=== PATIENT | female | born 1985 | race Caucasian/White ===

== ENCOUNTER 2020-06-30 15:31 | Outpatient (CLI) | payer MEDICAID | END 2020-06-30 16:55 | disposition home or self-care (01) | LOC: D.LDO 15:31 | PROVIDERS: ATTEND Obstetrics & Gynecology | DX: O26.899 Other specified pregnancy related conditions, unspecified trimester (principal); R10.30 Lower abdominal pain, unspecified ==

== ENCOUNTER 2020-09-23 06:21 | Inpatient (IN) | payer MEDICAID ==
[~2020-09-23] VITALS: Ht 167.6 cm; Wt 96.2 kg
[2020-09-23 06:42] VITALS: BP 108/69; Ht 167.6 cm; Wt 96.2 kg
[2020-09-23 07:05] LABS: BASOPHILS 0.4 % (0-2); EOSINOPHILS 2.4 % (0-7); HEMATOCRIT 29.3 % (36.0-48.0); LYMPHOCYTES 21.1 % (15-50); MCH 31.1 pg (26.0-34.0); MCHC 33.9 g/dL (31.0-37.0); MCV 91.7 fL (80.0-100.0); MEAN PLATELET VOLUME 11.1 fL (7.4-10.4); MONOCYTES 5.4 % (2-11); NEUTROPHILS 70.7 % (40-80); PLATELET COUNT 148 10x3/uL (130-400); RDW 13.1 % (11.5-14.5); WBC 7.5 10x3/uL (4.8-10.8)
[2020-09-23 07:21] LABS: UDS - AMPHET NEGATIVE QUAL (NEGATIVE); UDS - BARB NEGATIVE QUAL (NEGATIVE); UDS - BENZO NEGATIVE QUAL (NEGATIVE); UDS - COCAINE NEGATIVE QUAL (NEGATIVE); UDS - OPIATE NEGATIVE QUAL (NEGATIVE); UDS - PCP NEGATIVE QUAL (NEGATIVE); UDS - THC NEGATIVE QUAL (NEGATIVE)
--- NOTE | 2020-09-24 03:20 | NUR ---
PT CALLS OUT ON LIGHT REQUESTING A NURSE. PT CHUCKS CHANGED PER PT REQUEST. ELIZONDO BEDSIDE DRAINAGE CONTAINER EMPTIED, 350 MLS YELLOW URINE. PT DENIES OTHER NEEDS AT THIS TIME.
[2020-09-24 08:14] LABS: RAPID PLASMA REAGIN Non Reactive (Non Reactive)
[2020-09-24 19:27] VITALS: BP 104/48
--- NOTE | 2020-09-24 19:27 | NUR ---
PT A,A,OX4. VSS. PT HOLDING IN ARMS. FF,MIDLINE,UU, SMALL AMOUNT RUBRA LOCHIA NOTED ON PERIPAD. PIV IN LEFT HAND SALINE LOCKED, PATENT. SEE FULL ASSESSMENT PER FLOWSHEET. ICE WATER PROVIDED. PT DENIES PAIN. DENIES NEEDS AT THIS TIME.
--- NOTE | 2020-09-24 21:24 | NUR ---
TORADOL ADMINISTERED PER EMAR. INFANT RESTING IN CRIB, SIG OTHER SUPPORTIVE IN ROOM. PT DENIES NEEDS AT THIS TIME.
--- NOTE | 2020-09-24 22:50 | NUR ---
PT SITTING UP IN BED. DENIES NEEDS AT THIS TIME.
--- NOTE | 2020-09-25 00:07 | NUR ---
PT RESTING WITH EYES CLOSED, BREATHING NONLABORED.
--- NOTE | 2020-09-25 03:14 | NUR ---
TORADOL ADMINISTERED PER EMAR. PT HOLDING INFANT IN ARMS. ICE WATER PROVIDED. DENIES OTHER NEEDS AT THIS TIME.
--- NOTE | 2020-09-25 04:45 | NUR ---
PT RESTING WITH EYES CLOSED, BREATHING NONLABORED.
--- NOTE | 2020-09-25 05:54 | NUR ---
PT RESTING, DENIES PAIN OR OTHER NEEDS AT THIS TIME. SLEEPING IN CRIB.
[2020-09-25 06:28] LABS: BASOPHILS 0.5 % (0-2); EOSINOPHILS 3.3 % (0-7); HEMATOCRIT 29.5 % (36.0-48.0); HEMOGLOBIN 9.8 g/dL (12-16); MCHC 33.3 g/dL (31.0-37.0); MCV 93.1 fL (80.0-100.0); MEAN PLATELET VOLUME 11.3 fL (7.4-10.4); MONOCYTES 6.3 % (2-11); NEUTROPHILS 59.9 % (40-80); PLATELET COUNT 133 10x3/uL (130-400); RBC 3.17 10x6/uL (4.00-5.40); RDW 13.2 % (11.5-14.5); WBC 7.7 10x3/uL (4.8-10.8)
[2020-09-25 07:10] VITALS: BP 107/61
--- NOTE | 2020-09-25 07:10 | NUR ---
RECEIVED PT LYING TO LEFT SIDE IN BED. WAKES UPON VERBAL STIMULATION. AAO X 3. VSS. HRRR WITHOUT AUDIBLE MURMUR. BBS CLEAR. BS X 4. ABDOMEN SOFT/NON-DISTENDED. FUNDUS FIRM AT U/2. RUBRA LOCHIA SMALL AMT. PT DENIES HEAVY BLEEDING OR PASSING CLOTS. NEG HOMANS' SIGN. PPP. MILD, NON-PITTING EDEMA NOTED TO ANKLES/FEET. PT DENIES PAIN OR NEEDS. SR UP X 2. CALL LIGHT IN REACH.
--- NOTE | 2020-09-25 09:14 | NUR ---
PT PROVIDED WITH TOILETRIES AND LINEN FOR SHOWER. SALINE LOCK TO LEFT HAND DC'D WITH CATHELON INTACT. PRESSURE BANDAGE TO SITE.
--- NOTE | 2020-09-25 11:15 | NUR ---
DR CAIN VISITS WITH PT.
--- NOTE | 2020-09-25 12:45 | NUR ---
PT SITTING UP IN BED. CARING FOR INFANT. DENIES PAIN OR NEEDS.
--- NOTE | 2020-09-25 14:42 | NUR ---
PT STATES DOES NOT WANT TO ROOM IN. PT VSS. DENIES PAIN OR NEEDS.
[2020-09-25 14:43] VITALS: BP 101/61
--- NOTE | 2020-09-25 16:30 | NUR ---
PT LYING TO LEFT SIDE IN BED. AWAKE. WATCHES TV. DENIES PAIN OR NEEDS.
[2020-09-25] MEDS ORDERED: IBUPROFEN800 MG PO (17:44)
[2020-09-25 19:40] VITALS: BP 109/60
--- NOTE | 2020-09-25 19:40 | NUR ---
ROOM CHECK COMPLETE. PT AWAKE AND ALERT. SHIFT ASSESSMENT COMPLETE. VSS. DENIES ANY PAIN. FUNDUS FIRM, MIDLINE, U3. REPORTS LIGHT BLEEDING. BROUGHT ICE WATER. DENIES NEEDING ANYTHING ELSE @ THIS TIME.
--- NOTE | 2020-09-25 22:35 | NUR ---
ROOM CHECK COMPLETE. PT SLEEPING. NO SIGNS OF PAIN OR DISTRESS NOTED.
--- NOTE | 2020-09-26 00:18 | NUR ---
ROOM CHECK COMPLETE. PT ASLEEP. NO SIGNS OF PAIN OR DISTRESS NOTED.
--- NOTE | 2020-09-26 03:15 | NUR ---
ROOM CHECK COMPLETE. PT HAD BEEN SLEEPING AND WOKE WHEN I CAME IN. DENIES NEEDING ANYTHING @ THIS TIME.
--- NOTE | 2020-09-26 04:40 | NUR ---
ROOM CHECK COMPLETE. PT HAD BEEN ASLEEP AND WOKE WHEN I CAME INTO ROOM. NO SIGNS OF PAIN OR DISTRESS NOTED. DENIES NEEDING ANYTHING @ THIS TIME.
--- NOTE | 2020-09-26 05:50 | NUR ---
ROOM CHECK COMPLETE. PT HAD BEEN ASLEEP AND WOKE WHEN I CAME IN. NO SIGNS OF PAIN OR DISTRESS NOTED. DENIES NEEDING ANYTHING @ THIS TIME.
[2020-09-26 07:25] VITALS: BP 101/61
--- NOTE | 2020-09-26 07:30 | NUR ---
AM ROUNDS MADE. PT RESTING QUIETLY, DENIES PAIN OR NEEDS AT THIS TIME. DESIRES DC HOME TODAY. SEE FLOWSHEET FOR ASSESSMENT
--- NOTE | 2020-09-26 10:15 | NUR ---
DC INSTRUCTIONS PROVIDED, PAPERWORK WITH FOLLOW UP APPT GIVEN. PATIENT AND S/O DENY FURTHER QUESTIONS. INFANT PLACED IN CAR SEAT PER PATIENT, CHECKED BY THIS RN. PT IN WHEELCHAIR AND OFF UNIT @[id number]
== END 2020-09-26 10:25 | disposition home or self-care (01) | DRG 807 ==
LOC: D.LD 06:21
PROVIDERS: ADMIT Obstetrics & Gynecology; ATTEND Obstetrics & Gynecology
PROC: 10E0XZZ Delivery of Products of Conception, External Approach (ICD-10-PCS; principal; 2020-09-24)
DX: O99.824 Streptococcus B carrier state complicating childbirth (principal); Z37.0 Single live birth; Z3A.39 39 weeks gestation of pregnancy; Z87.891 Personal history of nicotine dependence; Z86.16 Personal history of COVID-19